=== PATIENT | female | born 1980 | race Caucasian/White ===

== ENCOUNTER → 2016-07-24 09:33 | Outpatient (CLI) | payer MEDICAID ==
[2014-02-20 16:22] VITALS: BMI 39.5
[~2016-07-24 09:33] MED LIST: BUPROPION HCL100 M1 PO; BUPROPION XL300 MG PO; ESTRADERM 0.00.05 MG TD; EZFE 200200 MG PO; FERROUS SULFAT325 MG PO; HYDROCODONE-APA1 TAB PO; IBUPROFEN600 MG PO; MEGACE40 MG PO; PERCOCET 5-3251 TAB PO
== END | disposition home or self-care (01) ==
LOC: D.MRI 09:33
DX: M76.60 Achilles tendinitis, unspecified leg (principal); M72.2 Plantar fascial fibromatosis

== ENCOUNTER → 2016-11-26 15:00 | Outpatient (CLI) | payer MEDICAID ==
[2014-02-20 16:22] VITALS: BMI 39.5
== END | disposition home or self-care (01) ==
LOC: D.MAMMO 10:15
DX: Z12.31 Encounter for screening mammogram for malignant neoplasm of breast (principal)

== ENCOUNTER 2018-01-10 04:05 | Emergency (ER) | payer OTHER ==
[~2018-01-10] VITALS: Ht 177.8 cm; Wt 122.7 kg
[2018-01-10 04:08] VITALS: Ht 177.8 cm; Wt 122.7 kg
[2018-01-10] MEDS ORDERED: ESTRACE2 MG (04:10)
[2018-01-10 05:08] VITALS: BP 122/78
== END 2018-01-10 05:08 | disposition home or self-care (01) ==
LOC: D.ER 04:05
DX: S69.91XA Unspecified injury of right wrist, hand and finger(s), initial encounter (principal); X58.XXXA Exposure to other specified factors, initial encounter; Y93.89 Activity, other specified; Y92.019 Unspecified place in single-family (private) house as the place of occurrence of the external cause